=== PATIENT | female | born 1950 | race Caucasian/White ===

== ENCOUNTER 2021-08-04 09:03 | Emergency (ER) | payer MEDICAID, MEDICARE ==
[~2021-08-04] VITALS: Ht 165.1 cm; Wt 73.6 kg
[~2021-08-04 09:03] MED LIST: IBUP-1574 PO; IBUP-1984 PO; NO HOME MEDS
[2021-08-04 09:15] VITALS: BP 151/99
[2021-08-04] MEDS ORDERED: NIRM1TAB PO (11:56)
== END 2021-08-04 12:09 | disposition home or self-care (01) ==
LOC: ER 09:04
DX: U07.1 COVID-19 (principal)
CPT/HCPCS: 87635; 99283; C9803

== ENCOUNTER 2021-09-10 16:32 | Emergency (ER) | payer MEDICARE ==
[~2021-09-10 16:32] MED LIST changes: +NIRM1TAB PO
== END 2021-09-10 18:00 | disposition left against medical advice (07) ==
LOC: ER 16:32
DX: F32.A Depression, unspecified (principal); Z53.21 Procedure and treatment not carried out due to patient leaving prior to being seen by health care provider